=== PATIENT | female | born 1985 | race American Indian/Alaskan Native ===

== ENCOUNTER 2017-08-22 12:56 | Emergency (ER) | payer SELFPAY ==
--- NOTE | 2017-08-22 15:45 | Emergency Department Report ---
Blank Doc - Documentation Documentation: 32yo f with at 7 weeks came in complaining of pelvic cramping and noticing brownish discharge. Pt states she wants to make sure she is not having a miscarriage P: blood work, ultrasound, urine, pelvic exam
--- NOTE | 2017-08-22 16:16 | Emergency Department Report ---
ED Female HPI - General Chief complaint: Abdominal Pain Stated complaint: 7WKS PREG./SPOTTING Time Seen by Provider: 08/22/17 15:35 Source: patient Mode of arrival: Ambulatory Limitations: No Limitations - History of Present Illness Initial comments: 32yo f with at 7 weeks came in complaining of pelvic cramping and noticing brownish discharge. Pt states she wants to make sure she is not having a miscarriage. No past medical history currently takes vitamins. -: days(s) (1) Radiation: suprapubic Severity: mild Severity scale (0 -10): 2 Quality: cramping Consistency: intermittent Improves with: none Worsens with: none Are you Now?: Yes Last Menstrual Period: 07/15/17 EDC: 04/21/18 Associated Symptoms: denies other symptoms - Related Data Sexually active: Yes : 4 Para: 2 A: 1 Home Medications Medication Instructions Recorded Confirmed Last Taken Triamcinolone Acetonide Oint 0.5% 1 applic TRANSDERMA DAILY 01/15/16 01/15/16 Unknown Previous Rx's Medication Instructions Recorded Last Taken Type Cetirizine HCl [ZyrTEC] 10 mg PO QDAY #30 capsule 01/15/16 Unknown Rx Hydrocortisone 2.5% [Hytone 2.5% 1 applicatio TP BID #1 tube 01/15/16 Unknown Rx CREAM] Allergies Allergy/AdvReac Type Severity Reaction Status Date / Time No Known Allergies Allergy Verified 08/22/17 12:59 ED Review of Systems ROS: Stated complaint: 7WKS PREG./SPOTTING Other details as noted in HPI Comment: All other systems reviewed and negative Gastrointestinal: abdominal pain, nausea Genitourinary: other (vaginal bleeding) ED Past Medical Hx - Past Medical History Additional medical history: Eczema - Surgical History Additional Surgical History: D&C - Social History Smoking Status: Never Smoker Substance Use Type: None - Medications Home Medications: Home Medications Medication Instructions Recorded Confirmed Last Taken Type Cetirizine HCl [ZyrTEC] 10 mg PO QDAY #30 capsule 01/15/16 Unknown Rx Hydrocortisone 2.5% [Hytone 2.5% 1 applicatio TP BID #1 tube 01/15/16 Unknown Rx CREAM] Triamcinolone Acetonide Oint 0.5% 1 applic TRANSDERMA DAILY 01/15/16 01/15/16 Unknown History ED Physical Exam - General Limitations: No Limitations - External exam: Present: normal external exam Speculum exam: Present: normal speculum exam Bi-manual exam: Present: normal bi-manual exam - Extremities Exam Extremities exam: Present: normal inspection - Back Exam Back exam: Present: normal inspection - Neurological Exam Neurological exam: Present: alert, oriented X3 - Psychiatric Psychiatric exam: Present: normal affect, normal mood - Skin Skin exam: Present: warm, dry, intact, normal color. Absent: rash ED Course Vital Signs 08/22/17 08/22/17 08/22/17 12:59 15:33 18:17 Temperature 98.4 F 98.8 F Pulse Rate 87 70 Respiratory 16 17 14 Rate Blood Pressure 111/77 124/79 O2 Sat by Pulse 100 100 Oximetry ED Medical Decision Making - Lab Data Result diagrams: 08/22/17 16:32 08/22/17 16:32 - Medical Decision Making Patient's been evaluated by this provider fast track. Discussed with patient that we would do basic labs and ultrasound. Patient denies any pain or vaginal bleeding at this time. Critical care attestation.: If time is entered above; I have spent that time in minutes in the direct care of this critically ill patient, excluding procedure time. ED Disposition Clinical Impression: Vaginal spotting Disposition: DC-01 TO HOME OR SELFCARE Is pt being admited?: No Does the pt Need Aspirin: No Condition: Stable Instructions: Abdominal Pain (ED) Additional Instructions: Please follow up with her primary ANALYSIS INTERN.. Referrals: IZABEL GARCIA MD [Primary Care Provider] - 3-5 Days JEFF ARGUELLO MD [Referring] - 3-5 Days Forms: Work/School Release Form(ED)
[2017-08-22 16:38] LABS: Bilirubin,Urine NEG (Negative); Blood,Urine NEG (Negative); Color,Urine Yellow (Yellow); Mucus,Urine 2+ /HPF; Protein,Urine <15 mg/dL mg/dL (Negative)
[2017-08-22 16:46] LABS: Basophils % (Auto) 0.6 % (0.0-1.8); Eosinophils # (Auto) 0.5 K/mm3 (0.0-0.4); Eosinophils % (Auto) 6.3 % (0.0-4.3); Hematocrit 38.3 % (30.3-42.9); Hemoglobin 13.1 gm/dl (10.1-14.3); Lymphocytes # (Auto) 1.2 K/mm3 (1.2-5.4); Lymphocytes % (Auto) 15.5 % (13.4-35.0); Mean Corpuscular HGB Conc 34 % (30-34); Mean Corpuscular Hemoglobin 28 pg (28-32); Mean Corpuscular Volume 83 fl (79-97); Monocytes # (Auto) 0.3 K/mm3 (0.0-0.8); Monocytes % (Auto) 3.4 % (0.0-7.3); Platelet Count 232 K/mm3 (140-440); Red Blood Count 4.64 M/mm3 (3.65-5.03); Red Cell Distribution Width 13.9 % (13.2-15.2)
[2017-08-22 17:06] LABS: Alanine Aminotransferase 11 units/L (7-56); Albumin 4.3 g/dL (3.9-5); BUN/Creatinine Ratio 12; Blood Urea Nitrogen 7 mg/dL (7-17); Calcium 9.1 mg/dL (8.4-10.2); Hemolysis Index 0
[2017-08-22 18:27] VITALS: BP 124/79
--- NOTE | 2017-08-22 18:29 | Ultrasound Report ---
FINAL REPORT PROCEDURE: US OB TRANSVAGINAL and transabdominal TECHNIQUE: Real-time transabdominal and transvaginal sonography of the uterus, placenta, amniotic fluid, adnexa, and fetus was performed with image documentation. Measurements were obtained to determine age/size. M-mode Doppler was used to document heartbeat. CPT 37965 [place] 71612 HISTORY: vag bleeding COMPARISON: No prior studies are available for comparison. FINDINGS: ADDITIONAL GESTATION: None. CRL: 11.3 mm, which corresponds to a gestational age of: 7 weeks, 2 days. Yolk Sac: Normal. Embryonic Cardiac Activity: 145 Gestational Sac: Normal. Amniotic fluid: Normal. Cervix: Normal. Right Ovary: 2.7 centimeter complex cyst is present Left Ovary: Normal. Estimated delivery date: 04/08/2018 IMPRESSION: 1. Single live intrauterine gestation at approximately 7 weeks, 2 days. 2. EDC by US 04/08/2018 3. Complete anatomic survey at 18-20 weeks suggested. PROCEDURE: TECHNIQUE: HISTORY: COMPARISON: FINDINGS: IMPRESSION:
--- NOTE | 2017-08-22 18:29 | Ultrasound Report ---
FINAL REPORT PROCEDURE: US OB TRANSVAGINAL and transabdominal TECHNIQUE: Real-time transabdominal and transvaginal sonography of the uterus, placenta, amniotic fluid, adnexa, and fetus was performed with image documentation. Measurements were obtained to determine age/size. M-mode Doppler was used to document heartbeat. CPT 56334 and 61261 HISTORY: vag bleeding COMPARISON: No prior studies are available for comparison. FINDINGS: ADDITIONAL GESTATION: None. CRL: 11.3 mm, which corresponds to a gestational age of: 7 weeks, 2 days. Yolk Sac: Normal. Embryonic Cardiac Activity: 145 Gestational Sac: Normal. Amniotic fluid: Normal. Cervix: Normal. Right Ovary: 2.7 centimeter complex cyst is present Left Ovary: Normal. Estimated delivery date: 04/08/2018 IMPRESSION: 1. Single live intrauterine gestation at approximately 7 weeks, 2 days. 2. EDC by US 04/08/2018 3. Complete anatomic survey at 18-20 weeks suggested.
== END 2017-08-22 19:37 | disposition home or self-care (01) ==
LOC: ED 12:56
DX: O26.851 Spotting complicating pregnancy, first trimester (principal); Z3A.01 Less than 8 weeks gestation of pregnancy
CPT/HCPCS: 36415; 76801; 76817; 80053; 81001; 84702; 84703; 85025; 86850; 86900; 86901; 87210; 87591